=== PATIENT | male | born 1955 | race Caucasian/White ===

== ENCOUNTER 2023-04-26 21:35 | Emergency (ER) | payer MEDICARE ==
[~2023-04-26] VITALS: Ht 177.8 cm; Wt 84.1 kg
[2023-04-26 21:56] VITALS: BP 152/94; TEMP 98.6
[2023-04-26] MEDS ORDERED: traMADol 50 MG TAB PO ONE (22:45)
[2023-04-26] MEDS ORDERED: tiZANidine 4 MG TAB PO ONE (22:45)
[2023-04-26] MEDS ORDERED: ULTRAM 50MG TAB50 MG PO (23:34)
[2023-04-26] MEDS ORDERED: Home traMADol 50 MG #2 TAB/PACK PO ONE (23:45)
[2023-04-27] MEDS ORDERED: ZANAFLEX 4MG TAB4 MG PO (00:04)
[2023-04-27 00:24] VITALS: PULSE 60
== END 2023-04-27 00:24 | disposition home or self-care (01) ==
LOC: COL.ER 21:35
DX: M54.2 Cervicalgia (principal)

== ENCOUNTER → 2023-07-24 | Outpatient (CLI) | payer MEDICARE, OTHER ==
[~2023-07-24] MED LIST: COREG 3.123.125 MG/T PO; CRESTOR 10MG10 MG PO; ELIQUIS 5MG PO; LASIX 20MG TABL20 MG PO; NORCO 325 MG-7.1 TAB PO; NORVASC 10MG10 MG PO; PACERONE100 MG PO; REGLAN 10MG10 MG/TAB PO; SYNTHROID0.05 MG/TA PO; ULTRAM 50MG TAB50 MG PO; ZANAFLEX 4MG TAB4 MG PO; ZESTRIL 20MG TA20 MG PO
== END ==
LOC: COL.RAD 10:45
DX: M89.9 Disorder of bone, unspecified (principal); C90.00 Multiple myeloma not having achieved remission